=== PATIENT | male | born 2000 | race Caucasian/White ===

== ENCOUNTER 2022-03-06 14:12 | Emergency (ER) | payer MEDICAID, OTHER ==
[~2022-03-06] VITALS: Ht 180.3 cm; Wt 138.6 kg
[2022-03-06] MEDS ORDERED: ACET15SO4 AD (15:43)
[2022-03-06] MEDS ORDERED: PSEU120T61 PO (15:43)
[2022-03-06] MEDS ORDERED: MECL-134 PO (15:43)
[2022-03-06 15:45] VITALS: BP 123/78
== END 2022-03-06 15:47 | disposition home or self-care (01) ==
LOC: EMS 14:17
DX: B36.9 Superficial mycosis, unspecified (principal); H62.41 Otitis externa in other diseases classified elsewhere, right ear; H65.02 Acute serous otitis media, left ear
CPT/HCPCS: 99282; Z7502